=== PATIENT | female | born 1970 ===

== ENCOUNTER 2021-05-01 14:48 | Emergency (ER) | payer BC ==
[~2021-05-01] VITALS: Ht 157.5 cm; Wt 65.0 kg
[2021-05-01 14:56] VITALS: BP 139/81
--- NOTE | 2021-05-01 15:43 | NUR ---
electrical prospecting observer: Pt ambulatory to room from [employer] at this time. Addendum: 05/01/21 at 1543 by JAE electrical prospecting observer: Pt to room via WC from [employer] at this time.
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
== END 2021-05-01 17:28 | disposition left against medical advice (07) ==
LOC: ED 16:24
DX: S93.492A Sprain of other ligament of left ankle, initial encounter (principal); I10 Essential (primary) hypertension; X58.XXXA Exposure to other specified factors, initial encounter; Y93.89 Activity, other specified; Y92.410 Unspecified street and highway as the place of occurrence of the external cause; Y99.8 Other external cause status
CPT/HCPCS: 99283